=== PATIENT | female | born 1970 | race African-American/Black ===

== ENCOUNTER 2017-01-18 16:44 | Emergency (ER) | payer SELFPAY ==
[~2017-01-18] VITALS: Ht 170.2 cm; Wt 80.0 kg
[2017-01-18 16:58] VITALS: BP 138/85
[2017-01-18] MEDS ORDERED: ATEN50TA PO (16:58)
[2017-01-18] MEDS ORDERED: LORA2TAB2 PO (16:58)
[2017-01-18] MEDS ORDERED: montelukast (16:58)
[2017-01-18] MEDS ORDERED: seroquel (16:58)
== END 2017-01-18 18:49 | disposition home or self-care (01) ==
LOC: ER 16:45
DX: H66.93 Otitis media, unspecified, bilateral (principal); J44.9 Chronic obstructive pulmonary disease, unspecified; I10 Essential (primary) hypertension; E78.00 Pure hypercholesterolemia, unspecified; F41.9 Anxiety disorder, unspecified; D25.9 Leiomyoma of uterus, unspecified; F17.200 Nicotine dependence, unspecified, uncomplicated; Z98.890 Other specified postprocedural states
CPT/HCPCS: 99283